=== PATIENT | female | born 1990 | race Two or more races ===

== ENCOUNTER 2021-11-11 19:37 | Emergency (ER) | payer MEDICAID ==
[~2021-11-11] VITALS: Ht 162.6 cm; Wt 47.6 kg
[2021-11-11] MEDS ORDERED: ONDANSETRON 4 MG/2 ML VIAL IV ONE (20:30)
[2021-11-11] MEDS ORDERED: IV NORMAL SALINE 1000 ML BAG IV ONE (20:30)
--- NOTE | 2021-11-11 20:38 | NUR ---
Dr. Hitchcock at bedside for MSE.
[2021-11-11] MEDS ORDERED: ONDANSETRON 4 MG/2 ML VIAL ONE ×2 (20:42→22:04)
[2021-11-11] MEDS ORDERED: HALOPERIDOL LACTATE 5 MG/1 ML VIAL ONE (20:43)
[2021-11-11] MEDS ORDERED: HALOPERIDOL LACTATE 5 MG/1 ML VIAL IV ONE (20:45)
[2021-11-11 20:51] LABS: HEMATOCRIT 37.8 % (31.2-41.9); MEAN CORPUSCULAR HEMOGLOBIN 28.9 uug (24.7-32.8); MEAN CORPUSCULAR VOLUME 87.4 fL (75.5-95.3); PLATELET COUNT (AUTO) 366 K/uL (179-408)
[2021-11-11 20:55] LABS: CARBON DIOXIDE 28 mmol/L (21-32); CHLORIDE 104 mmol/L (98-107); CREATININE 0.9 mg/dL (0.6-1.3); GLUCOSE 129 mg/dL (74-106); POTASSIUM 3.4 mmol/L (3.5-5.1); UREA NITROGEN, BLOOD 9 mg/dL (7-18)
[2021-11-11 21:01] LABS: ALANINE AMINOTRANSFERASE 22 U/L (14-59); ALKALINE PHOSPHATASE 48 U/L (50-136); ASPARTATE AMINOTRANSFERASE 11 U/L (15-37); BILIRUBIN,DIRECT 0.1 mg/dL (0.0-0.2); BILIRUBIN,TOTAL 0.6 mg/dL (0.2-1.0); LIPASE 234 U/L (73-393); TOTAL PROTEIN, SERUM 8.1 g/dL (6.4-8.2)
[2021-11-11 21:02] LABS: ETHANOL < 3 MG/DL (0-0)
[2021-11-11 21:31] LABS: *BILIRUBIN,URIN NEGATIVE (NEGATIVE); *BLOOD, URINE TRACE (NEGATIVE); *CLARITY,URINE CLEAR (CLEAR); *COLOR,URINE YELLOW (YELLOW); *KETONES,URINE 2+ (NEGATIVE); *UROBILINOGEN,URINE 0.2 E.U./dl (NORMAL); LEUKOCYTE ESTERASE ,URINE TRACE (NEGATIVE); NITRITE, URINE NEGATIVE (NEGATIVE); PH,URINE 8.5 (5.0-8.0); UGLUCOSE NEGATIVE (NEGATIVE)
--- NOTE | 2021-11-11 22:01 | NUR ---
ekg performed withs assistance of Etta MALDONADO as personnel quality assurance auditor.
[2021-11-11 22:03] LABS: BACTERIA,URINE FEW /HPF (NONE SEEN); RBC,URINE 0-3 /HPF (0-3); SQUAMOUS EPITHELIAL CELL,UR FEW /HPF (NONE SEEN)
[2021-11-11] MEDS ORDERED: ONDANSETRON 4 MG/2 ML VIAL IV STA (22:03)
--- NOTE | 2021-11-11 22:29 | NUR ---
pt was discharged left without signing paperwork. Iv was removed by the pt and she left the er. I had to call security as the pt was going to bolt out the er door with her iv. As security arrived I advised the pt that she will not leave with the iv in her. She proceeded to remove it herself before I could get gloves on to remove it. She then went out the er doors.
--- NOTE | 2021-11-11 22:31 | NUR ---
Patient discharged to home in stable condition. Written and verbal after care instructions given. Patient verbalizes understanding of instructions. Stressed follow up or return to ER for worsening s/s.
[2021-11-11] MEDS ORDERED: ONDA4TAB5 PO (22:35)
[2021-11-11 22:39] VITALS: BP 120/80
[2021-11-12 10:09] LABS: *AMPHETAMINE, URINE NEGATIVE (NEGATIVE); *CANNABINOID, URINE POSITIVE (NEGATIVE); *COCCAINE, URINE NEGATIVE (NEGATIVE); *OPIATE, URINE NEGATIVE (NEGATIVE); *PHENCYCLIDINE SCREEN,URINE NEGATIVE (NEGATIVE)
== END 2021-11-11 22:42 | disposition home or self-care (01) ==
LOC: ER 19:40
DX: R11.2 Nausea with vomiting, unspecified (principal); R10.9 Unspecified abdominal pain; Z86.39 Personal history of other endocrine, nutritional and metabolic disease
CPT/HCPCS: 80076; 80048; 81001; 83690; 85025; 84484; 84702; 36415; 93005; 99285; 96361; 96374; 96375; 96376; 80320; 80307; J1630; J2405 ×2; J7040; A4663; G0480